=== PATIENT | male | born 1965 | race Hispanic/Latino ===

== ENCOUNTER 2017-05-15 23:31 | Emergency (ER) | payer MEDICARE ==
[2017-05-16] MEDS ORDERED: HYDROCODONE/ACETAMINOPHEN 10/325 MG TAB ONE
== END 2017-05-16 00:15 | disposition home or self-care (01) ==
LOC: EDH 23:31
DX: H72.91 Unspecified perforation of tympanic membrane, right ear (principal); E11.9 Type 2 diabetes mellitus without complications; E78.5 Hyperlipidemia, unspecified; Z72.0 Tobacco use; Z88.8 Allergy status to other drugs, medicaments and biological substances; Z91.041 Radiographic dye allergy status

== ENCOUNTER 2018-03-05 10:39 | Emergency (ER) | payer OTHER ==
[2018-03-05] MEDS ORDERED: LIDOCAINE HCL 1% 20 ML VIAL ONE (12:03)
== END 2018-03-05 12:35 | disposition home or self-care (01) ==
LOC: EDH 10:39
DX: L02.212 Cutaneous abscess of back [any part, except buttock and flank] (principal); E11.9 Type 2 diabetes mellitus without complications; M10.9 Gout, unspecified; E78.5 Hyperlipidemia, unspecified; Z88.8 Allergy status to other drugs, medicaments and biological substances; Z79.82 Long term (current) use of aspirin; Z79.84 Long term (current) use of oral hypoglycemic drugs; Z79.899 Other long term (current) drug therapy; Z98.890 Other specified postprocedural states; Z87.891 Personal history of nicotine dependence
CPT/HCPCS: 10140; 10160

== ENCOUNTER → 2019-02-26 | Outpatient (CLI) | payer MEDICARE | END | disposition home or self-care (01) | LOC: RAH 10:40 | PROVIDERS: ATTEND Urology | DX: R31.29 Other microscopic hematuria (principal) | CPT/HCPCS: 76770 ==

== ENCOUNTER 2019-06-08 22:54 | Emergency (ER) | payer MEDICARE, OTHER ==
[2019-06-08] MEDS ORDERED: KETOROLAC TROMETHAMINE 60 MG/2 ML VIAL ONE (23:38)
[2019-06-08] MEDS ORDERED: LIDOCAINE 5% TOPICAL PATCH TP ONE (23:39)
[2019-06-08] MEDS ORDERED: DIAZEPAM 5 MG TABLET ONE (23:39)
== END 2019-06-09 00:43 | disposition home or self-care (01) ==
LOC: EDH 22:54
DX: M54.16 Radiculopathy, lumbar region (principal); E11.9 Type 2 diabetes mellitus without complications; I10 Essential (primary) hypertension; E78.5 Hyperlipidemia, unspecified; Z98.890 Other specified postprocedural states; Z91.041 Radiographic dye allergy status; Z72.0 Tobacco use
CPT/HCPCS: 96372; 99283; J1885